=== PATIENT | male | born 1985 | race African-American/Black ===

== ENCOUNTER 2019-06-05 09:44 | Emergency (ER) | payer MEDICAID, OTHER ==
[~2019-06-05] VITALS: Ht 170.2 cm; Wt 91.0 kg
[2019-06-05] MEDS ORDERED: MAGNESIUM/ALUMINUM HYDROXIDE/SIMETHICONE 30ML UDC PO STA (10:06)
[2019-06-05] MEDS ORDERED: KETOROLAC 30MG/ML VIAL IV STA (10:06)
[2019-06-05] MEDS ORDERED: ONDANSETRON HCL 4MG/2ML INJ IV STA (10:06)
[2019-06-05] MEDS ORDERED: SODIUM CHLORIDE 0.9% 1,000 ML IV ONE (10:06)
[2019-06-05 11:19] LABS: BASOPHILS % 0.9 % (0.0-2.0); EOSINOPHILS % 4.4 % (0.0-5.0); HEMATOCRIT. 45.9 % (42.0-52.0); LYMPHOCYTES % 26.9 % (20.0-50.0); MEAN CORPUSCULAR HEMOGLOBIN 24.8 pg (28.0-32.0); MEAN CORPUSCULAR VOLUME 75.9 fL (80.0-94.0); MEAN PLATELET VOLUME 8.1 fl (7.4-10.4); MONOCYTES % 8.8 % (2.0-8.0); PLATELET 296 x1000/uL (130-400); RED BLOOD CELL COUNT 6.04 mill/uL (4.7-6.1); RED CELL DISTRIBUTION WIDTH 16.4 % (11.6-14.6)
[2019-06-05 11:29] LABS: CHLORIDE 107 mEq/L (98-107)
[2019-06-05 11:35] LABS: ETHANOL BLOOD < 10 mg/dL
[2019-06-05 12:40] VITALS: BP 139/84
== END 2019-06-05 12:53 | disposition home or self-care (01) ==
LOC: ER 09:59
DX: R10.9 Unspecified abdominal pain (principal); R11.2 Nausea with vomiting, unspecified; F17.200 Nicotine dependence, unspecified, uncomplicated
CPT/HCPCS: 36415; 80053; 80320; 83690; 85025; 96361; 96374; 96375; 99283; J1885; J2405; J7030; G0480

== ENCOUNTER 2021-06-23 16:18 | Emergency (ER) | payer MEDICAID ==
[~2021-06-23] VITALS: Ht 170.2 cm; Wt 91.0 kg
[2021-06-24] MEDS ORDERED: IBUPROFEN 600MG TABLET PO ONE (01:00)
[2021-06-24 01:20] LABS: BASOPHILS % 1.1 % (0.0-2.0); EOSINOPHILS % 4.3 % (0.0-5.0); HEMATOCRIT. 44.9 % (42.0-52.0); HEMOGLOBIN. 14.6 g/dL (14.0-18.0); LYMPHOCYTES % 41.3 % (20.0-50.0); MEAN CORPUSCULAR VOLUME 76.8 fL (80.0-94.0); MEAN PLATELET VOLUME 7.4 fl (7.4-10.4); MONOCYTES % 9.9 % (2.0-8.0); NEUTROPHILS % 43.4 % (40.0-76.0); PLATELET 315 x1000/uL (130-400); RED BLOOD CELL COUNT 5.84 mill/uL (4.7-6.1); RED CELL DISTRIBUTION WIDTH 16.2 % (11.6-14.6)
[2021-06-24 01:22] LABS: CHLORIDE 104 mEq/L (98-107)
[2021-06-24] MEDS ORDERED: IBUP-2029 MT (02:10)
[2021-06-24 02:15] VITALS: BP 129/88
== END 2021-06-24 02:34 | disposition home or self-care (01) ==
LOC: ER 16:18
DX: R07.89 Other chest pain (principal); R03.0 Elevated blood-pressure reading, without diagnosis of hypertension
CPT/HCPCS: 36415; 71045; 80053; 84484; 85025; 93005; 99285

== ENCOUNTER 2022-02-15 04:16 | Emergency (ER) | payer MEDICAID ==
[~2022-02-15] VITALS: Ht 170.2 cm; Wt 91.0 kg
[~2022-02-15 04:16] MED LIST: IBUP-2029 MT
[2022-02-15] MEDS ORDERED: ASPIRIN 325MG EC TABLET PO ONE (04:30)
[2022-02-15 05:00] VITALS: BP 131/83
[2022-02-15 05:25] LABS: EOSINOPHILS % 2.2 % (0.0-5.0); HEMATOCRIT. 48.2 % (42.0-52.0); HEMOGLOBIN. 15.7 g/dL (14.0-18.0); LYMPHOCYTES % 42.5 % (20.0-50.0); MEAN CORPUSCULAR HEMOGLOBIN 25.2 pg (28.0-32.0); MEAN CORPUSCULAR VOLUME 77.6 fL (80.0-94.0); MEAN PLATELET VOLUME 7.7 fl (7.4-10.4); MONOCYTES % 12.3 % (2.0-8.0); PLATELET 341 x1000/uL (130-400); RED BLOOD CELL COUNT 6.21 mill/uL (4.7-6.1)
[2022-02-15 05:30] LABS: CHLORIDE 106 mEq/L (98-107)
[2022-02-15 05:36] LABS: ETHANOL BLOOD 118 mg/dL
[2022-02-15 05:58] LABS: *AMPHETAMINES SCREEN URINE NEGATIVE (NEGATIVE); *BARBITURATES SCREEN URINE NEGATIVE (NEGATIVE); *BENZODIAZEPINES SCREEN URINE NEGATIVE (NEGATIVE); *COCAINE SCREEN URINE PRESUMTIVE POSITIVE (NEGATIVE)
[2022-02-15 05:59] LABS: CANNABINOID URINE SCREEN NEGATIVE (NEGATIVE); METHADONE URINE SCREEN NEGATIVE (NEGATIVE); OPIATES URINE SCREEN NEGATIVE (NEGATIVE); PHENCYCLIDINE URINE SCREEN NEGATIVE (NEGATIVE)
[2022-02-15] MEDS ORDERED: FAMOTIDINE 20MG TABLET PO SCH (06:00)
[2022-02-15] MEDS ORDERED: MAGNESIUM/ALUMINUM HYDROXIDE/SIMETHICONE 30ML UDC PO ONE (06:00)
== END 2022-02-15 07:26 | disposition home or self-care (01) ==
LOC: ER 04:16
DX: F14.10 Cocaine abuse, uncomplicated (principal); R07.89 Other chest pain; F10.10 Alcohol abuse, uncomplicated; Y90.5 Blood alcohol level of 100-119 mg/100 ml
CPT/HCPCS: 36415; 71045; 80053; 80305; 80320; 84484; 85025; 93005; 99285; G0480

== ENCOUNTER 2022-05-04 04:26 | Emergency (ER) | payer MEDICAID ==
[~2022-05-04] VITALS: Ht 170.2 cm; Wt 87.7 kg
[2022-05-04] MEDS ORDERED: IBUPROFEN 400MG TABLET PO ONE (05:45)
[2022-05-04] MEDS ORDERED: ACETAMINOPHEN 325MG TABLET PO ONE (05:45)
[2022-05-04] MEDS ORDERED: LORAZEPAM 1MG TABLET PO ONE (05:45)
[2022-05-04] MEDS ORDERED: TOPUD PO (06:05)
[2022-05-04] MEDS ORDERED: IBUP-2028 MT (06:05)
[2022-05-04 06:37] VITALS: BP 123/78
== END 2022-05-04 06:37 | disposition home or self-care (01) ==
LOC: ER 04:26
DX: R07.89 Other chest pain (principal); F14.10 Cocaine abuse, uncomplicated; Z87.891 Personal history of nicotine dependence; R06.02 Shortness of breath
CPT/HCPCS: 71045; 93005; 99284

== ENCOUNTER 2022-10-14 07:36 | Emergency (ER) | payer MEDICAID ==
[~2022-10-14] VITALS: Ht 170.2 cm; Wt 91.0 kg
[~2022-10-14 07:36] MED LIST changes: +IBUP-2028 MT; +TOPUD PO
[2022-10-14] MEDS ORDERED: ONDANSETRON 4MG ODT PO ONE (08:30)
[2022-10-14] MEDS ORDERED: FAMOTIDINE 20MG TABLET PO ONE (08:30)
[2022-10-14 08:47] LABS: BASOPHILS % 0.6 % (0.0-2.0); EOSINOPHILS % 0.6 % (0.0-5.0); HEMATOCRIT. 47.8 % (42.0-52.0); HEMOGLOBIN. 15.6 g/dL (14.0-18.0); LYMPHOCYTES % 28.8 % (20.0-50.0); MEAN CORPUSCULAR HEMOGLOBIN 25.1 pg (28.0-32.0); MONOCYTES % 10.8 % (2.0-8.0); NEUTROPHILS % 59.2 % (40.0-76.0); RED BLOOD CELL COUNT 6.21 mill/uL (4.7-6.1); RED CELL DISTRIBUTION WIDTH 16.9 % (11.6-14.6)
[2022-10-14 08:56] LABS: CHLORIDE 98 mEq/L (98-107)
[2022-10-14 09:02] LABS: MEAN PLATELET VOLUME 7.3 fl (7.4-10.4)
[2022-10-14 09:03] LABS: PLATELET 300 x1000/uL (130-400)
[2022-10-14] MEDS ORDERED: SODIUM CHLORIDE 0.9% 1,000 ML IV ONE (10:00)
[2022-10-14] MEDS ORDERED: KETOROLAC 15MG/ML VIAL IV NR (10:00)
[2022-10-14] MEDS ORDERED: IOHEXOL-300 100 ML BOTTLE ONE (12:08)
[2022-10-14] MEDS ORDERED: ONDA4TAB11 PO (12:20)
[2022-10-14] MEDS ORDERED: FAMO-135 MT (12:20)
[2022-10-14 12:39] VITALS: BP 141/87
== END 2022-10-14 12:48 | disposition home or self-care (01) ==
LOC: ER 07:36
DX: R10.13 Epigastric pain (principal); F14.10 Cocaine abuse, uncomplicated
CPT/HCPCS: 36415; 74177; 80053; 80320; 83690; 85025; 93005; 96374; 99285; J1885; Q0162; Q9967; G0480